=== PATIENT | male | born 1940 | race Caucasian/White ===

== ENCOUNTER 2019-08-29 00:28 | Emergency (ER) | payer MEDICARE ==
[2019-08-29 01:42] LABS: Urine Appearance Clear; Urine Bilirubin Negative (Negative); Urine Blood Negative (Negative); Urine Color Yellow; Urine Glucose Negative (Negative); Urine Ketones Negative (Negative); Urine Nitrite Negative (Negative); Urine Protein Negative (Negative); Urine Specific Gravity 1.011 (1.010-1.030); Urine Urobilinogen Negative (Negative)
[2019-08-29] MEDS ORDERED: Lidocaine 2% VISCOUS* 15 ML UDC PO ONE (03:27)
[2019-08-29] MEDS ORDERED: Al Hydrox/Mg Hydrox/Simet LIQ* 30 ML UDC PO ONE (03:27)
--- NOTE | 2019-08-29 03:29 | ED ---
Abdominal Pain/Male - HPI Summary HPI Summary: This patient is a 79 year old M presenting to [facility] accompanied by a female branch office manager with a chief complaint of ABD pain since 4 hours ago. and presented epigastric abdominal pain that radiates to his back. Reporting nausea, denies vomiting. Pt states he did not have these symptoms before. He reports the pain was not associated with eating and he was sleeping when it began. The patient rates the pain 6/10 in severity, a/w nausea. Better w resting. Patient denies CP, difficulty breathing. PMHx of HTN - History of Current Complaint Chief Complaint: EDAbdPain Stated Complaint: ABD PAIN PER PT Time Seen by Provider: 08/29/19 02:30 Hx Obtained From: Patient, Other: - female branch office manager Onset/Duration: Sudden Onset, Lasting Hours - 4, Still Present Timing: Constant, Lasting Hours - 4 Pain Intensity: 6 Pain Scale Used: 0-10 Numeric Aggravating Factor(s): Nothing Alleviating Factor(s): Nothing Associated Signs And Symptoms: Positive: Other - negative - difficulty breathing. positive - ABD pain. Negative: Chest Pain - Allergies/Home Medications Allergies/Adverse Reactions: Allergies Allergy/AdvReac Type Severity Reaction Status Date / Time No Known Allergies Allergy Verified 08/29/19 00:49 Home Medications: Home Medications Atorvastatin* [Lipitor*] 20 mg PO DAILY 08/29/19 [History Confirmed 08/29/19] Finasteride TAB* [Proscar TAB*] 1 tab PO DAILY 08/29/19 [History Confirmed 08/29] Lisinopril 1 tab PO DAILY 08/29/19 [History Confirmed 08/29/19] PMH/Surg Hx/FS Hx/Imm Hx Previously Healthy: No GI History: Denies: Hx Cirrhosis Sensory History: Denies: Hx Cataracts, Hx Vision Problem EENT History: Denies: Hx Deafness, Hx Auditory Problems - Surgical History Surgical History: None Infectious Disease History: No Infectious Disease History: Denies: Traveled Outside the [place] in Last 30 Days - Family History Known Family History: Positive: Cardiac Disease - Social History Alcohol Use: Weekly Substance Use Type: Reports: None Smoking Status (MU): Never Smoked Tobacco Review of Systems Negative: Chest Pain Respiratory: Other - negative - difficulty breathing Positive: Abdominal Pain All Other Systems Reviewed And Are Negative: Yes Physical Exam - Summary Physical Exam Summary: Constitutional: Well-developed, Well-nourished, Alert. (-) Distressed Skin: Warm, Dry HENT: Normocephalic; Atraumatic Eyes: Conjunctiva normal Neck: Musculoskeletal ROM normal neck. (-) JVD, (-) Stridor, (-) Nuchal rigidity Cardio: Rhythm regular, rate normal, Heart sounds normal; Intact distal pulses; Radial pulses are 2+ and symmetric. (-) Murmur Pulmonary/Chest wall: Effort normal. (-) Respiratory distress, (-) Wheezes, (-) Rales Abd: Soft, mild epigastric tenderness, (-) Distension, (-) Guarding, (-) Rebound Musculoskeletal: (-) Edema Lymph: (-) Cervical adenopathy Neuro: Alert, Oriented x3 Psych: Mood and affect Normal Triage Information Reviewed: Yes Vital Signs On Initial Exam: Initial Vitals Temp Pulse Resp BP Pulse Ox 98.1 F 68 18 157/95 94 08/29/19 00:46 08/29/19 00:46 08/29/19 00:46 08/29/19 00:46 08/29/19 00:46 Vital Signs Reviewed: Yes Procedures - Sedation Patient Received Moderate/Deep Sedation with Procedure: No Diagnostics - Vital Signs Vital Signs Temp Pulse Resp BP Pulse Ox 08/29/19 00:46 98.1 F 68 18 157/95 94 - Laboratory Lab Results: Lab Results 08/29/19 Range/Units 00:58 Urine Color Yellow Urine Appearance Clear Urine pH 7.0 (5-9) Ur Specific [place] 1.011 (1.010-1.030) Urine Protein Negative (Negative) Urine Ketones Negative (Negative) Urine Blood Negative (Negative) Urine Nitrate Negative (Negative) Urine Bilirubin Negative (Negative) Urine Urobilinogen Negative (Negative) Ur Leukocyte Esterase Negative (Negative) Urine Glucose Negative (Negative) Result Diagrams: 08/29/19 04:20 08/29/19 04:20 Lab Statement: Any lab studies that have been ordered have been reviewed, and results considered in the medical decision making process. - Radiology CXR Radiology Interpretation Completed By: ED Physician Summary of Radiographic Findings: Impression: no acute process - EKG 0327 Cardiac Rate: NL - 60 BPM EKG Rhythm: Sinus Rhythm Summary of EKG Findings: EKG at 0327 shows sinus rhythm, 60 BPM, no ischemic changes Re-Evaluation - Re-Evaluation First Eval Re-Evaluation Time: 09:15 Change: Improved Comment: Patient reports that he had vomited up contrast. He reports having BM two hours ago. Pain is resolved at this time. Abd is soft and non-tender. Abdominal Pain Male Course/Dx - Course Course Of Treatment: 79 y/o male p/w abdominal pain. - DDx includes: pancreatitis, cholecystitis/choledocholithiasis, ACS, gastritis, renal stone. Physical exam of the well-appearing male, mild epigastric tenderness, check a lipase, CBC to assess for underlying infection CMP. Mild right or quadrant tenderness, unable to get comfortable tonight, we'll check a CT abdomen and pelvis he has any lab abnormalities. We'll also check a chest x-ray, EKG troponin for ACS. Does not describe typical tearing chest pain to back, no mediastinal widening on XR so lower suspicion dissection. Labs notable for leukocytosis to 13, neg trop, EKG neg for acute ischemia. Signed out to Dr. Daniel pending CT. Patient did have some vomiting of contrast. - Diagnoses Provider Diagnoses: Biliary colic Discharge ED - Sign-Out/Discharge Documenting (check all that apply): Sign-Out Patient Signing out patient TO: Ran Daniel - This pt will be signed out from Dr. Morris to Dr. Daniel at 0700 shift change. Patient Received Moderate/Deep Sedation with Procedure: No - Discharge Plan Condition: Stable Disposition: HOME Prescriptions: HYDROcodone/ACETAMIN 5-325 MG* [[place] 5-325 TAB*] 1 tab PO Q6H PRN #6 tab MDD 4 PRN Reason: Pain - Severe Patient Education Materials: Biliary Colic (ED), Low Fat Diet (ED) Referrals: [facility] [Outside] Additional Instructions: EAT A LOW FAT DIET. PLEASE RETURN TO ED FOR ANY NEW OR WORSENING SYMPTOMS. PLEASE FOLLOW UP WITH YOUR PRIMARY CARE PHYSICIAN WITHIN THREE DAYS. - Billing Disposition and Condition Condition: STABLE Disposition: Home - Attestation Statements Document Initiated by Scribe: Yes Documenting Scribe: Martin Kraus Provider For Whom Nora is Documenting (Include Credential): Dr. Roya Morris MD Scribe Attestation: I, Martin Kraus, scribed for Dr. Roya Morris MD on 08/31/19 at 0752. Scribe Documentation Reviewed: Yes Provider Attestation: The documentation as recorded by the scribe, Martin Kraus accurately reflects the service I personally performed and the decisions made by me, Dr. Roya Morris MD Status of Scribe Document: Viewed
[2019-08-29 04:32] LABS: ABS Basophils 0.1 10^3/ul (0-0.2); ABS Eosinophils 0.1 10^3/ul (0-0.6); ABS Lymphocytes 0.9 10^3/ul (1.0-4.8); ABS Monocytes 0.7 10^3/ul (0-0.8); ABS Neutrophils 9.8 10^3/ul (1.5-7.7); Eosinophil % 1.1 %; Hematocrit 44 % (42-52); Hemoglobin 15.3 g/dL (14.0-18.0); Mean Corpuscular HGB Conc 35 g/dL (31-36); Mean Corpuscular Hemoglobin 32 pg (27-31); Mean Corpuscular Volume 93 fL (80-94); Mean Platelet Volume 7.1 fL (7.4-10.4); Platelet Count 223 10^3/uL (150-450); Red Blood Count 4.73 10^6 /uL (4.18-5.48); Red Cell Distribution Width 14 % (10-15); White Blood Count 11.6 10^3/uL (3.5-10.8)
[2019-08-29 04:49] LABS: Albumin 4.4 g/dL (3.2-5.2); Albumin/Globulin Ratio 1.6 (1-3); BUN/Creatinine Ratio 14.1 (8-20); Calcium 9.5 mg/dL (8.6-10.3); EGFR African American 105.8 (>60); EGFR Non-African American 87.4 (>60); Globulin 2.7 g/dL (2-4); Potassium 4.3 mmol/L (3.5-5.0); Total Bilirubin 0.7 mg/dL (0.2-1.0); Total Protein 7.1 g/dL (6.4-8.9)
[2019-08-29 04:50] LABS: Troponin I 0.02 ng/mL (<0.04)
[2019-08-29] MEDS ORDERED: Ondansetron INJ* 2 MG/ML VIAL IV ONE (06:08)
[2019-08-29] MEDS ORDERED: Iohexol 300* (CONTRAST) 10 ML SDV IV ONE (06:56)
--- NOTE | 2019-08-29 09:03 | ED ---
Progress - Progress Note Progress Note: Patient is received as a sign out from Dr. Morris to Dr. Daniel at 08/29/19 0700 shift change pending results of CT ABD/PEL. CT ABD/PEL IMPRESSION: 1. THERE IS DISTENTION AND MILD DILATATION OF LOOPS OF SMALL BOWEL, WITH A TRANSITION TO DECOMPRESSED SMALL BOWEL, WITH VISUALIZATION OF THE CONTENTS OF THE SMALL BOWEL PROXIMALLY. THE APPEARANCE IS SUGGESTIVE OF PARTIAL SMALL BOWEL OBSTRUCTION, POSSIBLY CHRONIC. 2. THERE ARE MULTIPLE DIVERTICULA OF THE SMALL BOWEL. THERE IS A LARGE DIVERTICULUM THAT APPEARS TO BE CONTIGUOUS WITH THE DUODENUM MEASURING UP TO 7.5 CM. THERE IS COLONIC DIVERTICULOSIS. 3. CHOLELITHIASIS. 4. ATHEROSCLEROSIS THIS REPORT WAS REVIEWED BY DR. DANIEL. 904 - Gallbladder US was ordered. GALLBLADDER US IMPRESSION: CHOLELITHIASIS THIS REPORT WAS REVIEWED BY DR. DANIEL. - EKG/XRAY/CT CT: see above Re-Evaluation - Re-Evaluation First Eval Re-Evaluation Time: 09:15 Change: Improved Comment: Patient reports that he had vomited up contrast. He reports having BM two hours ago. Pain is resolved at this time. Abd is soft and non-tender. Second Eval Re-Evaluation Time: 10:05 Change: Improved Comment: Patient has been passing gas. He had a bowel movement in ED and is tolerating PO. Patient to be given food in ED for PO challenge. Third Eval Re-Evaluation Time: 10:25 Change: Improved Comment: Patient successfully passed PO challenge, he was discharged to home. Course/Dx - Course Course Of Treatment: Patient is received as a sign out from Dr. Morris to Dr. Daniel at 08/29/19 0700 shift change pending results of CT ABD/PEL. CT ABD/ PEL IMPRESSION: 1. THERE IS DISTENTION AND MILD DILATATION OF LOOPS OF SMALL BOWEL, WITH A TRANSITION TO DECOMPRESSED SMALL BOWEL, WITH VISUALIZATION OF THE CONTENTS OF THE SMALL BOWEL. PROXIMALLY. THE APPEARANCE IS SUGGESTIVE OF PARTIAL SMALL BOWEL OBSTRUCTION, POSSIBLY. CHRONIC. 2. THERE ARE MULTIPLE DIVERTICULA OF THE SMALL BOWEL. THERE IS A LARGE DIVERTICULUM THAT. APPEARS TO BE CONTIGUOUS WITH THE DUODENUM MEASURING UP TO 7.5 CM. THERE IS COLONIC. DIVERTICULOSIS. 3. CHOLELITHIASIS. 4. ATHEROSCLEROSIS. 904 - Gallbladder US was ordered. GALLBLADDER US IMPRESSION: CHOLELITHIASIS. I have a low suspicion of SBO. Patient had a bowel movement in ED at around 0700. He is passing gas. Patient tolerated PO challenge. He was discharged to home and will follow up with PCP. - Diagnoses Provider Diagnoses: Biliary colic Discharge ED - Sign-Out/Discharge Documenting (check all that apply): Patient Departure - discharge Patient Received Moderate/Deep Sedation with Procedure: No - Discharge Plan Condition: Stable Disposition: HOME Prescriptions: HYDROcodone/ACETAMIN 5-325 MG* [[place] 5-325 TAB*] 1 tab PO Q6H PRN #6 tab MDD 4 PRN Reason: Pain - Severe Patient Education Materials: Biliary Colic (ED), Low Fat Diet (ED) Referrals: [facility] [Outside] Additional Instructions: EAT A LOW FAT DIET. PLEASE RETURN TO ED FOR ANY NEW OR WORSENING SYMPTOMS. PLEASE FOLLOW UP WITH YOUR PRIMARY CARE PHYSICIAN WITHIN THREE DAYS. - Attestation Statements Document Initiated by Scribe: Yes Documenting Scribe: TEGAN OROZCO Provider For Whom Scribe is Documenting (Include Credential): EMMANUEL DANIEL MD Scribe Attestation: I, TEGAN OROZCO, scribed for EMMANUEL DANIEL MD on 08/29/19 at 1038. Status of Scribe Document: Ready
[2019-08-29 10:38] VITALS: BP 162/91
== END 2019-08-29 10:32 | disposition home or self-care (01) ==
LOC: ED 00:28
DX: K80.70 Calculus of gallbladder and bile duct without cholecystitis without obstruction (principal); K57.10 Diverticulosis of small intestine without perforation or abscess without bleeding; K57.30 Diverticulosis of large intestine without perforation or abscess without bleeding; I70.0 Atherosclerosis of aorta; R11.0 Nausea; R10.13 Epigastric pain
CPT/HCPCS: 36415; 71046; 74177; 76705; 80053; 81003; 83690; 84484; 85025; 93005; 96374; 99283; A9270-GY; J2405; Q9967